=== PATIENT | female | born 1955 | race Caucasian/White ===

== ENCOUNTER 2019-10-12 20:06 | Emergency (ER) | payer OTHER ==
[~2019-10-12] VITALS: Ht 170.2 cm; Wt 68.0 kg
[2019-10-12 20:16] VITALS: BP 90/48
--- NOTE | 2019-10-12 20:48 | NUR ---
64 Y/O F PRESENTS TO ED C/O RT RIB PAIN X 2 DAYS. PT DENIES INJURY, FALL. PT STATES PAIN JUST STARTED ALL OF A SUDDEN. RR EVEN AND UNLABORED. NO DISTRESS NOTED. CAP REFILL <3 SECONDS. PT SITTING IN CHAIR IN ROOM. NO NEW CONCERNS AT THIS TIME. WILL CONTINUE TO MONITOR. MHX: DIABETES, HTN, ASTHMA NKA
--- NOTE | 2019-10-12 20:50 | NUR ---
DR. OSPINA AT BEDSIDE EVALUATING PT.
[2019-10-12] MEDS ORDERED: NACL 0.9% 500 ML IV ONE (20:53)
[2019-10-12] MEDS ORDERED: KETOROLAC 30 MG/ML VIAL IVP ONE (20:55)
[2019-10-12] MEDS ORDERED: ONDANSETRON 4 MG/2 ML VIAL IVP ONE (20:55)
--- NOTE | 2019-10-12 21:47 | NUR ---
PT SITTING UPRIGHT IN BED. NO DISTRESS NOTED. BED IN LOWEST POSITION. SIDE RAIL UP X1. WILL CONTINUE TO MONITOR.
[2019-10-12 21:58] LABS: BASOPHILS % (AUTO) 0.1 % (0.0-2.0); EOSINOPHILS # (AUTO) 0.1 K/uL (0-0.4); EOSINOPHILS % (AUTO) 1.4 % (0.0-4.0); HEMATOCRIT 33.3 % (36-48); HEMOGLOBIN 11.1 g/dL (12.0-16.0); LYMPHOCYTES # (AUTO) 2.3 K/uL (2.5-16.5); LYMPHOCYTES % (AUTO) 32.4 % (20.5-51.1); MEAN CORPUSCULAR HEMOGLOBIN 29 pg (27-31); MEAN CORPUSCULAR HGB CONC 33 g/dL (33-37); MEAN CORPUSCULAR VOLUME 86.5 fL (80-94); MONOCYTES # (AUTO) 0.4 K/uL (0.8-1.0); MONOCYTES % (AUTO) 5.4 % (1.7-9.3); NEUTROPHILS # (AUTO) 4.2 K/uL (1.8-7.7); NEUTROPHILS % (AUTO) 60.7 % (42.2-75.2); PLATELET COUNT (AUTO) 178 K/uL (140-450); RED BLOOD CELL COUNT(AUTO) 3.85 MIL/uL (4.20-5.40); RED CELL DISTRIBUTION WIDTH 14.6 % (11.6-13.7)
[2019-10-12 22:07] LABS: ALBUMIN 3.6 g/dL (3.4-5.0); ANION GAP 13.4 (8-16); CARBON DIOXIDE 25.9 mmol/L (21-32); CREATININE 0.8 mg/dL (0.6-1.3); POTASSIUM 4.3 mmol/L (3.5-5.1); TOTAL BILIRUBIN 0.5 mg/dL (0.0-1.0)
--- NOTE | 2019-10-12 23:00 | NUR ---
PT TAKEN TO CT VIA WHEELCHAIR
--- NOTE | 2019-10-12 23:11 | NUR ---
DR. OSPINA AT BEDSIDE.
--- NOTE | 2019-10-12 23:58 | NUR ---
PT SITTING UPRIGHT IN BED, NO DISTRESS NOTED. NO NEW CONCERNS AT THIS TIME. BED IN LOWEST POSITION, SIDE RAIL UP X1. WILL CONTINUE TO MONITOR.
--- NOTE | 2019-10-12 23:59 | NUR ---
DR. OSPINA AT BEDSIDE.
[2019-10-13 00:14] VITALS: BP 130/58
--- NOTE | 2019-10-15 07:52 | NUR ---
LATE ENTRY- NORMAL SALINE 0.9% BOLUS DISCONTINUED AT 0014.
== END 2019-10-13 00:10 | disposition home or self-care (01) ==
LOC: MED 20:06
DX: R10.11 Right upper quadrant pain (principal); E11.9 Type 2 diabetes mellitus without complications; I10 Essential (primary) hypertension; J45.909 Unspecified asthma, uncomplicated
CPT/HCPCS: 36415; 74176; 76705; 80053; 83690; 85025; 93005; 96374; 96375; 99285; J1885; J2405; J7030; Q0092; 99284

== ENCOUNTER 2021-10-31 14:54 | Emergency (ER) | payer OTHER ==
[~2021-10-31] VITALS: Ht 144.8 cm; Wt 67.6 kg
[2021-10-31 15:09] VITALS: BP 162/79
[2021-10-31] MEDS: LIDOCAINE MPF 1% 10 MG/ML VIAL INJ ONE ×2 (15:32→16:05)
[2021-10-31] MEDS: KETOROLAC 30 MG/ML VIAL IM ONE (15:33)
--- NOTE | 2021-10-31 16:03 | NUR ---
pa in room for suture set up
--- NOTE | 2021-10-31 16:09 | NUR ---
66 y/o female, c/o facial lac from item that fell on face in garage prior to arrival. pt denies loc or syncope, but does state she feels very dizzy. denies n/v/d. unable to recall last tdap vaccine. upon assessment, pt has partial thickness lac, approximating. pt states pain is 10/10 at this time. pmh: dm2, htn nka med: denies
[2021-10-31] MEDS ORDERED: BACI1PAC6 TP (16:19)
[2021-10-31] MEDS ORDERED: IBUP-1842 PO (16:19)
[2021-10-31 17:07] VITALS: BP 162/79
--- NOTE | 2021-10-31 17:08 | NUR ---
Patient discharged with v/s stable. Written and verbal after care instructions given and explained. Patient alert, oriented and verbalized understanding of instructions. Ambulatory with daughter to car. All questions addressed prior to discharge. ID band removed. Patient advised to follow up with PMD. Rx of ibuprofen, bacitracin cream (sent) given. Patient educated on indication of medication including possible reaction and side effects. Opportunity to ask questions provided and answered.
== END 2021-10-31 17:07 | disposition home or self-care (01) ==
LOC: MED 14:54
DX: S01.81XA Laceration without foreign body of other part of head, initial encounter (principal); J45.909 Unspecified asthma, uncomplicated; E11.9 Type 2 diabetes mellitus without complications; I10 Essential (primary) hypertension; Z79.2 Long term (current) use of antibiotics; Z79.1 Long term (current) use of non-steroidal anti-inflammatories (NSAID); W45.8XXA Other foreign body or object entering through skin, initial encounter; Y93.89 Activity, other specified; Y92.89 Other specified places as the place of occurrence of the external cause; Y99.8 Other external cause status
CPT/HCPCS: 12013; 90471; 90715; 96372; 99284; J1885; J2001

== ENCOUNTER 2021-11-02 09:13 | Emergency (ER) | payer OTHER ==
[~2021-11-02] VITALS: Ht 139.7 cm; Wt 66.7 kg
[~2021-11-02 09:13] MED LIST: BACI1PAC6 TP; IBUP-1842 PO
[2021-11-02 09:33] VITALS: BP 140/72
--- NOTE | 2021-11-02 09:45 | NUR ---
66/F PRESENTS TO ED FOR RECHECK OF SUTURES PLACED ON 10/31/21 ON RIGHT JEWISH/EYEBROW. REPORTS WAS TOLD TO RETURN TODAY TO CHECK ON HEALING OF SITE. PATIENT DENIES WORSENING PAIN OR FEVERS.
[2021-11-02 10:34] VITALS: BP 140/72
--- NOTE | 2021-11-02 10:34 | NUR ---
Patient discharged with v/s stable. Written and verbal after care instructions ABOUT WOUND CARE given and explained. Patient verbalized understanding. Ambulatory with steady gait. All questions addressed prior to discharge. Advised to follow up with PMD.
== END 2021-11-02 10:34 | disposition home or self-care (01) ==
LOC: MED 09:13
DX: S01.81XD Laceration without foreign body of other part of head, subsequent encounter (principal); J45.909 Unspecified asthma, uncomplicated; E11.9 Type 2 diabetes mellitus without complications; I10 Essential (primary) hypertension; Z79.899 Other long term (current) drug therapy; X58.XXXD Exposure to other specified factors, subsequent encounter
CPT/HCPCS: 99281

== ENCOUNTER 2021-11-08 19:51 | Emergency (ER) | payer OTHER ==
[~2021-11-08] VITALS: Ht 139.7 cm; Wt 66.7 kg
[2021-11-08 20:28] VITALS: BP 137/74
--- NOTE | 2021-11-08 22:28 | NUR ---
PT TAKEN TO CHAIR C
--- NOTE | 2021-11-08 22:45 | NUR ---
CHRISTIANO EXAMINING PT IN CHAIR C
--- NOTE | 2021-11-08 22:53 | NUR ---
7 SUTURES REMOVED FROM FACE. PT TOELRATED WELL. 2 STERRI STRIPS APPLIED
[2021-11-08 22:57] VITALS: BP 134/70
--- NOTE | 2021-11-08 22:57 | NUR ---
Patient discharged with v/s stable. Written and verbal after care instructions given ON SUTURE REMOVAL and explained. Patient verbalized understanding. Ambulatory with steady gait. All questions addressed prior to discharge. Advised to follow up with PMD.
== END 2021-11-08 22:57 | disposition home or self-care (01) ==
LOC: MED 19:51
DX: S01.81XD Laceration without foreign body of other part of head, subsequent encounter (principal); Z48.02 Encounter for removal of sutures; J45.909 Unspecified asthma, uncomplicated; I10 Essential (primary) hypertension; E11.9 Type 2 diabetes mellitus without complications; Z79.4 Long term (current) use of insulin; Z79.899 Other long term (current) drug therapy; X58.XXXD Exposure to other specified factors, subsequent encounter
CPT/HCPCS: 99281

== ENCOUNTER 2022-05-16 15:59 | Emergency (ER) | payer OTHER ==
[~2022-05-16] VITALS: Ht 154.9 cm; Wt 70.3 kg
[~2022-05-16 15:59] MED LIST changes: +BACI-416 TP; -BACI1PAC6 TP
[2022-05-16 16:04] VITALS: BP 154/59
--- NOTE | 2022-05-16 16:47 | NUR ---
CATIE MCGARRY AT BEDSIDE FOR EVALUATION
[2022-05-16] MEDS ORDERED: KETOROLAC 30 MG/ML VIAL IM ONE (16:50)
--- NOTE | 2022-05-16 17:00 | NUR ---
66YO FEMALE PT C/O SHARP 810 R LEG PAIN X1WEEK. STATES RADIATION FROM R GLUTE TO BACK OF LEG. PAIN AT MOST ON MOVEMENT OR BEARING WEIGHT. DENIES RECENT INJURY OR RELIEF AFTER IBUPROFEN. GLUTE TENDER W/O VISIBLE INJURY. PT ABLE TO LIFT LEG W/ SOME DISCOMFORT. PT AAOX4, AMB W/ UNSTEADY GAIT. HOB POSITIONED PER COMFORT HX: DIABETES, HTN, ANXIETY NKA
--- NOTE | 2022-05-16 17:18 | NUR ---
XRAY AT BEDSIDE
--- NOTE | 2022-05-16 17:26 | NUR ---
PT TAKEN TO XRAY VIA WHEELCHAIR
--- NOTE | 2022-05-16 17:36 | NUR ---
PT BROUGHT BACK VIA WHEELCHAIR
[2022-05-16] MEDS ORDERED: NAPR-1704 PO (17:52)
[2022-05-16] MEDS ORDERED: CAPS1ADH5 TP (17:52)
[2022-05-16 18:05] VITALS: BP 149/89
--- NOTE | 2022-05-16 18:05 | NUR ---
Patient discharged with v/s stable. Written and verbal after care instructions FOR [facility] given and explained. Patient alert, oriented and verbalized understanding of instructions. Ambulatory with steady gait. All questions addressed prior to discharge. ID band removed. Patient advised to follow up with PMD. Rx of NAPROXEN AND SALONPAS given. Opportunity to ask questions provided and answered.
--- NOTE | 2022-05-16 18:06 | NUR ---
The patient's care was reviewed and supervised by Lizbeth Pimentel, RN, RN.
== END 2022-05-16 18:05 | disposition home or self-care (01) ==
LOC: MED 15:59
DX: M54.31 Sciatica, right side (principal); J45.909 Unspecified asthma, uncomplicated; I10 Essential (primary) hypertension; E11.9 Type 2 diabetes mellitus without complications; Z79.4 Long term (current) use of insulin; Z79.899 Other long term (current) drug therapy
CPT/HCPCS: 73502; 96372; 99283; J1885; Q0092

== ENCOUNTER 2023-08-03 10:43 | Emergency (ER) | payer OTHER ==
[~2023-08-03] VITALS: Ht 144.8 cm; Wt 62.6 kg
[~2023-08-03 10:43] MED LIST changes: +ACET-10509 PO; -BACI-416 TP; +BACI-418 TP; +CAPS1ADH5 TP; +CYCL-711 PO; +DICL20GE TP; +NAPR-1704 PO
[2023-08-03 11:02] VITALS: BP 146/85; PULSE 100; RESP 20; TEMP 99.6; O2SAT 97
[2023-08-03] MEDS ORDERED: BENZ100C6 PO (12:26)
[2023-08-03] MEDS ORDERED: AMOX1TAB8 PO (12:26)
[2023-08-03] MEDS ORDERED: PROM118S5 PO (12:26)
== END 2023-08-03 12:52 | disposition home or self-care (01) ==
LOC: MED 10:43
DX: J06.9 Acute upper respiratory infection, unspecified (principal); H66.91 Otitis media, unspecified, right ear; J45.909 Unspecified asthma, uncomplicated; I10 Essential (primary) hypertension; E11.9 Type 2 diabetes mellitus without complications; F32.A Depression, unspecified; F41.9 Anxiety disorder, unspecified; Z79.1 Long term (current) use of non-steroidal anti-inflammatories (NSAID); Z79.899 Other long term (current) drug therapy
CPT/HCPCS: 99283